=== PATIENT | male | born 1990 | race Two or more races ===

== ENCOUNTER → 2021-01-05 | Day surgery (SDC) | payer SELFPAY ==
[~2021-01-05] MED LIST: ADVIL200 MG PO; PERCOCET 5/325 T1 EA PO
== END | disposition home or self-care (01) ==
LOC: OR 06:49
PROVIDERS: Surgery
PROC: 0YU50JZ Supplement Right Inguinal Region with Synthetic Substitute, Open Approach (ICD-10-PCS; principal; 2021-01-05 08:00)
DX: K40.90 Unilateral inguinal hernia, without obstruction or gangrene, not specified as recurrent (principal); Z20.822 Contact with and (suspected) exposure to COVID-19; Z79.1 Long term (current) use of non-steroidal anti-inflammatories (NSAID)
CPT/HCPCS: C1781; J0690; J1100; J1885; J2001; J2250; J2405; J2704; J3010; J7030; J7120

== ENCOUNTER 2022-03-06 06:48 | Emergency (ER) | payer MEDICAID ==
[2022-03-06] MEDS ORDERED: NORFLEX 100 MG100 MG PO (08:49)
[2022-03-06] MEDS ORDERED: IBUPROFEN600 MG PO (08:49)
[2022-03-06] MEDS ORDERED: MEDROL DOSEPAK 24 MG PO (08:49)
== END 2022-03-06 09:32 | disposition home or self-care (01) ==
LOC: ER1 06:48
DX: M51.36 Other intervertebral disc degeneration, lumbar region (principal)
CPT/HCPCS: 72110; 81001; 96372; 99283; J1100; J1885

== ENCOUNTER → 2022-03-09 | Outpatient (CLI) | payer OTHER ==
[~2022-03-09] MED LIST changes: +IBUPROFEN600 MG PO; +MEDROL DOSEPAK 24 MG PO; +NORFLEX 100 MG100 MG PO
== END ==
LOC: EMI 08:00
DX: M51.26 Other intervertebral disc displacement, lumbar region (principal); M48.07 Spinal stenosis, lumbosacral region
CPT/HCPCS: 72148

== ENCOUNTER → 2022-04-18 | Outpatient (CLI) | payer OTHER ==
[2022-04-18 09:40] LABS: HEMOGLOBIN 15.4 gm/dl (14.0-17.5); RED BLOOD COUNT 5.26 M/UL (4.20-5.50); WHITE BLOOD COUNT 5.4 K/UL (4.5-11.0)
[2022-04-18 09:57] LABS: BUN/CREATININE RATIO 17 (0-10)
== END ==
LOC: OPSV2 08:00
PROVIDERS: Orthopaedic Surgery
DX: Z01.818 Encounter for other preprocedural examination (principal); M51.16 Intervertebral disc disorders with radiculopathy, lumbar region
CPT/HCPCS: 71046; 80048; 81001; 83036; 85027; 87081; 93005

== ENCOUNTER → 2022-05-01 | Outpatient (CLI) | payer OTHER ==
[~2022-05-01] MED LIST changes: +ROXICODONE5 MG PO
[2022-05-01 11:14] LABS: BUN/CREATININE RATIO 14 (0-10)
== END ==
LOC: LAB 10:01
PROVIDERS: Orthopaedic Surgery
DX: Z01.812 Encounter for preprocedural laboratory examination (principal)
CPT/HCPCS: 36415; 80048; 86850; 86900; 86901

== ENCOUNTER → 2022-05-02 | Day surgery (SDC) | payer OTHER | END | disposition home or self-care (01) | LOC: OR 05:36 | DX: M51.16 Intervertebral disc disorders with radiculopathy, lumbar region (principal) | CPT/HCPCS: 72110; 76000; C1781; J0690; J1040; J1100; J1200; J1885; J2250; J2405; J2704; J2710; J3010; J3370; J3475 ==